=== PATIENT | male | born 1960 | race Native Hawaiian/Other Pacific Islander ===

== ENCOUNTER 2016-10-20 12:18 | Outpatient (CLI) | payer BC ==
[~2016-10-20 12:18] MED LIST: LIPITOR20 MG PO; LISI20TA11 PO
[2016-10-20] MEDS ORDERED: OMEP20CA PO (14:58)
[2016-10-20] MEDS ORDERED: AMBIEN5 MG PO (14:59)
[2016-10-20] MEDS ORDERED: COZAAR100 MG PO (14:59)
[2016-10-20] MEDS ORDERED: CELEXA20 MG PO (15:00)
== END 2016-10-20 12:19 | disposition short-term general hospital (02) ==
LOC: AMB 12:18
DX: R07.89 Other chest pain (principal)
CPT/HCPCS: A0425; A0427